=== PATIENT | female | born 1965 | race Caucasian/White ===

== ENCOUNTER 2019-12-30 20:09 | Outpatient (CLI) | payer OTHER | END 2019-12-30 20:10 | disposition short-term general hospital (02) | LOC: EMS 20:09 | PROVIDERS: ATTEND Surgery | DX: R00.2 Palpitations (principal) | CPT/HCPCS: A0425; A0427 ==

== ENCOUNTER 2023-12-12 15:29 | Outpatient (CLI) | payer OTHER ==
--- NOTE | 2023-12-13 13:58 | Ultrasound Report ---
PROCEDURE: Pelvic w/Transvaginal INDICATIONS: POST MENOPAUSAL TECHNIQUE: Real-time scanning was performed of the pelvic organs, with image documentation. Additional endovagi nal scanning was necessary due to incomplete visualization of the adnexal and endometrial structures by transabdominal scanning. COMPARISON: None. FINDINGS: Uterus: Uterus is anteverted and normal in size at 7.0 x 2.7 x 3.6 cm. The myometrium is heterogene ous. The endometrium measures 16 mm in combined thickness. Endometrium is heterogeneous in echotext ure. No discrete endometrial mass or fluid is seen. Ovaries: The right ovary is not visualized. The left ovary measures 2.6 x 1.2 x 1.2 cm, with a calcu lated ovarian volume of 2.07 cc. Less than 12 follicles can be seen in left ovary. No adnexal masses are seen. No cystic lesions measuring greater than 3 cm. Other: No pathologic free abdominal or pelvic fluid. IMPRESSION: 1. Heterogeneous myometrium without discrete uterine fibroid. Thickened endometrium with heterogeneou s echotexture concerning for endometrial hyperplasia. No definite endometrial mass or fluid is seen. DATA SCIENTIST correlation is recommended. 2. Normal-appearing left ovary. Right ovary is not visualized. No gross adnexal mass. Reviewed by: Ronnie Loredo MD on 12/13/2023 1:57 PM PDT Approved by: Ronnie Loredo MD on 12/13/2023 1:57 PM PDT Station ID: [id number]
== END 2023-12-12 15:30 | disposition home or self-care (01) ==
LOC: DI 15:29
PROVIDERS: ATTEND Nurse Practitioner Family
DX: R93.89 Abnormal findings on diagnostic imaging of other specified body structures (principal)